=== PATIENT | female | born 1995 | race Caucasian/White ===

== ENCOUNTER 2016-09-17 18:23 | Outpatient (CLI) | payer MEDICAID ==
[2016-09-17] VITALS (9 sets, daily range): BP systolic 132–151; BP diastolic 70–98
[~2016-09-17] VITALS: Ht 162.6 cm; Wt 79.4 kg
[~2016-09-17 18:23] MED LIST: DOCU100C37 PO; HYDR-3812 PO; IBUP-1773 PO; PREN1TAB19 PO
[2016-09-17 19:24] LABS: BASOPHILS % (AUTO) 0 % (0-10); EOSINOPHILS % (AUTO) 1 % (0-10); LYMPHOCYTES # (AUTO) 1.9 X 10^3 (1.0-4.0); LYMPHOCYTES % (AUTO) 26 % (12-44); MEAN CORPUSCULAR HEMOGLOBIN 30 PG (25-34); MEAN CORPUSCULAR HGB CONC 33 G/DL (32-36); MEAN CORPUSCULAR VOLUME 90 FL (80-99); MEAN PLATELET VOLUME 11.8 FL (7.4-10.4); MONOCYTES # (AUTO) 0.7 X 10^3 (0.0-1.0); MONOCYTES % (AUTO) 9 % (0-12); NEUTROPHILS # (AUTO) 4.6 X 10^3 (1.8-7.8); NEUTROPHILS % (AUTO) 64 % (42-75); PLATELET COUNT 126 10^3/uL (130-400); RED CELL DISTRIBUTION WIDTH 13.5 % (10.0-14.5); WHITE BLOOD COUNT 7.2 10^3/uL (4.3-11.0)
[2016-09-17 20:00] LABS: ALANINE AMINOTRANSFERASE 10 U/L (0-55); ALBUMIN 3.4 G/DL (3.2-4.5); ANION GAP 10 MMOL/L (5-14); ASPARTATE AMINO TRANSFERASE 13 U/L (5-34); BILIRUBIN,TOTAL 0.3 MG/DL (0.1-1.0); BLOOD UREA NITROGEN 8 MG/DL (7-18); BUN/CREATININE RATIO 13; CARBON DIOXIDE 19 MMOL/L (21-32); CHLORIDE 107 MMOL/L (98-107); GFR ESTIMATED > 60; GLUCOSE 126 MG/DL (70-105); LACTATE DEHYDROGENASE 157 U/L (125-220); POTASSIUM 3.2 MMOL/L (3.6-5.0); SODIUM 136 MMOL/L (135-145); TOTAL PROTEIN 5.7 G/DL (6.4-8.2); URIC ACID 4.8 MG/DL (2.6-7.2)
--- NOTE | 2016-09-18 07:52 | Physician Query-Final Dx ---
ALEXANDR SAPP 09/18/16 0752: Clinic Account Progress/Dx Physician Query: Please give diagnosis Date of Service Sep 17, 2016 at 18:23 MELL LAGUERRE DO 09/21/16 0800: Clinic Account Progress/Dx DIAGNOSIS: Diagnosis 36 week iup Uterine contractions ALEXANDR SAPP Sep 18, 2016 07:52 MELL LAGUERRE DO Sep 21, 2016 08:00
== END 2016-09-17 20:58 | disposition home or self-care (01) ==
LOC: WSo 18:23 → LDRP 18:23 → WSo 20:58
PROVIDERS: ATTEND Obstetrics & Gynecology
DX: O47.03 False labor before 37 completed weeks of gestation, third trimester (principal); Z3A.36 36 weeks gestation of pregnancy
CPT/HCPCS: 36415; 80053; 82570; 83615; 84156; 84550; 85025; 99214

== ENCOUNTER 2016-10-04 20:00 | Outpatient (CLI) | payer MEDICAID ==
[~2016-10-04] VITALS: Ht 162.6 cm; Wt 82.1 kg
[2016-10-04 20:12] VITALS: BP 130/87
[2016-10-04 21:08] VITALS: BP 121/74
--- NOTE | 2016-10-05 07:41 | Diagnostic Imaging Report ---
INDICATION: Assessment for amniotic fluid. TECHNIQUE: The fetus was observed by the director of player personnel for purposes of a nonstress biophysical profile evaluation. FINDINGS: Intrauterine is currently in a cephalic presentation. cardiac activity at 139 beats per minute. Normal amount of amniotic fluid with an index at 17 cm. Biophysical Profile Scoring: breathin Body movement: 2 tone: 2 Amniotic fluid: 2 Total BPP Score: 8/8 IMPRESSION: 1. Normal biophysical profile score. Dictated by: Dictated on workstation # [id number]
--- NOTE | 2016-10-06 08:20 | Physician Query-Final Dx ---
ALEXANDR SAPP 10/06/16 0820: Clinic Account Progress/Dx Physician Query: Please give diagnosis Date of Service October 04, 2016 at 20:00 DELORIS LEBLANC MD 10/06/16 0855: Clinic Account Progress/Dx DIAGNOSIS: Diagnosis Possible rupture of membranes (not ruptured), third trimester ALEXANDR SAPP October 06, 2016 08:20 DELORIS LEBLANC MD October 06, 2016 08:55
== END 2016-10-04 22:00 | disposition home or self-care (01) ==
LOC: WSo 20:00 → LDRP 20:00 → WSo 22:00
PROVIDERS: ATTEND Obstetrics & Gynecology
DX: Z34.93 Encounter for supervision of normal pregnancy, unspecified, third trimester (principal)
CPT/HCPCS: 76819; 99214

== ENCOUNTER 2016-10-11 19:22 | Inpatient (IN) | payer MEDICAID ==
[~2016-10-11] VITALS: Ht 162.6 cm; Wt 81.2 kg
[2016-10-11 19:25] VITALS: BP 132/87
[2016-10-11] MEDS ORDERED: LACTATED RINGERS 1,000 ML IV ONE (19:32)
[2016-10-11] MEDS ORDERED: LACTATED RINGERS 1,000 ML IV SCH (20:10)
[2016-10-11 20:19] LABS: BASOPHILS % (AUTO) 0 % (0-10); EOSINOPHILS % (AUTO) 1 % (0-10); LYMPHOCYTES # (AUTO) 2.3 X 10^3 (1.0-4.0); LYMPHOCYTES % (AUTO) 30 % (12-44); MEAN CORPUSCULAR HEMOGLOBIN 29 PG (25-34); MEAN CORPUSCULAR HGB CONC 33 G/DL (32-36); MEAN CORPUSCULAR VOLUME 88 FL (80-99); MEAN PLATELET VOLUME 12.2 FL (7.4-10.4); MONOCYTES % (AUTO) 13 % (0-12); NEUTROPHILS # (AUTO) 4.3 X 10^3 (1.8-7.8); NEUTROPHILS % (AUTO) 57 % (42-75); PLATELET COUNT 161 10^3/uL (130-400); RED BLOOD COUNT 4.31 10^6/uL (4.35-5.85); RED CELL DISTRIBUTION WIDTH 14.1 % (10.0-14.5); WHITE BLOOD COUNT 7.6 10^3/uL (4.3-11.0)
[2016-10-11] MEDS ORDERED: MISOPROSTOL 100 MCG (CYTOTEC) TAB ONE (20:38)
[2016-10-11] MEDS: MISOPROSTOL 100 MCG (CYTOTEC) TAB PO SCH (20:45)
[2016-10-11] MEDS: D5 LR IV SOLUTION 1,000 ML IV SCH (20:46)
[2016-10-11 20:48] VITALS: BP 121/74
[2016-10-11 21:20] VITALS: BP 114/66
[2016-10-11 21:49] VITALS: BP 127/75
[2016-10-11] MEDS ORDERED: CATHETER FLUSH 10 ML SYR IV SCH (22:00)
[2016-10-11 22:19] VITALS: BP 112/63
[2016-10-11 22:40] VITALS: BP 122/58
[2016-10-12] VITALS (49 sets, daily range): BP systolic 100–162; BP diastolic 54–118
[2016-10-12] MEDS: MISOPROSTOL 100 MCG (CYTOTEC) TAB PO SCH (01:55)
[2016-10-12] MEDS ORDERED: HYDROmorphone (DILAUDID) 2 MG/ML VIAL IVP ONE (03:30)
[2016-10-12] MEDS: D5 LR IV SOLUTION 1,000 ML IV SCH ×2 (04:39→12:38)
--- NOTE | 2016-10-12 07:19 | History & Physical-OB ---
OB - Chief Complaint & HPI Date Date of Admission: Date of Admission: October 11, 2016 at 7:22 pm Chief Complaint/History OB-Reason for Admission/Chief: Induction of Labor Hx : 2 Hx Para: 1 Expected Date of Delivery: October 14, 2016 Gestational Age in Weeks: 39 Gestational Age in Days: 5 Indication for induction: other (elective >39 weeks) Admission Nurse Assessment Rev: Yes History of Labs O pos Antibody neg RI RPR NR HBsAg NR HIV NR GC neg GBS neg Allergies and Home Medications Allergies Coded Allergies: codeine (Verified Allergy, Mild, 02/05/15) Home Medications Vit/Iron Fumarate/FA 1 Each Tablet, 1 EACH PO DAILY, (Reported) OB - History Hx of Present Care: Yes Ultrasounds: Normal mid trimester US Obstetrical Complications: None Medical Complications: None Delivery History Hx Blood Disorders: No Adverse Rxn to Tranfusion: No Patient Past Medical History none Social History/Family History Recent Infectious Disease Expo: No Alcohol Use: Denies Use Recreational Drug Use: No OB - Admission Exam Physical Exam Vitals: Vital Signs 10/12/16 04:36 Temp 99.1 Pulse 74 Resp 18 B/P (MAP) 111/72 HEENT: NCAT Heart: Rhythm Normal Lungs: Clear Abdomen: Gravid Extremities: Normal Reflexes: Normal Cervical Dilatation: 2cm Effacement: 75% Station: -1 Membranes: Intact Heart Rate: 130's Accelerations: Accelerations Present Decelerations: No Decelerations Short Term Variability: Present Senior Care Variability: Average (6-25) Contractions on Admission: 6-10 Minutes Apart Intensity: Mild Carmichael Scoring Tool (Modified) Dilation (cm): 1-2cm (1) Effacement (%): 51-79% (2) Descent/Station: -1,0 (2) Cervix Consistency: Soft (2) Cervix Position: Anterior (2) Add 1 point for: Each previous vaginal delivery (1) Carmichael Score: 10 Labs Laboratory Tests Test 10/11/16 19:40 Range/Units White Blood Count 7.6 4.3-11.0 10^3/uL Red Blood Count 4.31 L 4.35-5.85 10^6/uL Hemoglobin 12.6 11.5-16.0 G/DL Hematocrit 38 35-52 % Mean Corpuscular Volume 88 80-99 FL Mean Corpuscular Hemoglobin 29 25-34 PG Mean Corpuscular Hemoglobin Concent 33 32-36 G/DL Red Cell Distribution Width 14.1 10.0-14.5 % Platelet Count 161 130-400 10^3/uL Mean Platelet Volume 12.2 H 7.4-10.4 FL Neutrophils (%) (Auto) 57 42-75 % Lymphocytes (%) (Auto) 30 12-44 % Monocytes (%) (Auto) 13 H 0-12 % Eosinophils (%) (Auto) 1 0-10 % Basophils (%) (Auto) 0 0-10 % Neutrophils # (Auto) 4.3 1.8-7.8 X 10^3 Lymphocytes # (Auto) 2.3 1.0-4.0 X 10^3 Monocytes # (Auto) 1.0 0.0-1.0 X 10^3 Eosinophils # (Auto) 0.0 0.0-0.3 10^3/uL Basophils # (Auto) 0.0 0.0-0.1 10^3/uL OB - Assessment/Plan/Diagnosis Assessment Assessment: induction of labor Plan Induction Method: per Misoprostol Protocol Discharge Diagnosis Diagnosis: 20 yo @ 39.5 weeks Elective >39 week induction GBS neg MELL LAGUERRE DO October 12, 2016 7:19 am
[2016-10-12] MEDS ORDERED: SUFENTA 0.6MCG/ML BUPIVA 0.125 100 ML ONE (11:21)
[2016-10-12] MEDS ORDERED: fentaNYL INJECTION 100 MCG/2 ML AMP ONE (11:29)
[2016-10-12] MEDS ORDERED: BUPIVACAINE 0.25% 30 ML (SENSORCAINE) VIAL ONE (11:29)
[2016-10-12] MEDS ORDERED: LIDOCAINE PF 2% 10 ML (XYLOCAINE) AMP ONE (11:29)
[2016-10-12] MEDS ORDERED: LACTATED RINGERS 1,000 ML IV ONE (12:03)
[2016-10-12] MEDS ORDERED: fentaNYL INJECTION 100 MCG/2 ML AMP INJ ONE (12:15)
[2016-10-12] MEDS ORDERED: OXYTOCIN/NORMAL SALINE 500 ML IV SCH ×2 (12:15→18:01)
[2016-10-12] MEDS ORDERED: CATHETER FLUSH 10 ML SYR IV PRN (12:15)
[2016-10-12] MEDS ORDERED: diphenhydrAMINE 50 MG/ML INJ (BENADRYL) IV PRN (12:15)
[2016-10-12] MEDS ORDERED: EPIDURAL (SUFENTA 0.6MCG/ML BUPIVA 0.125%) 100 ML BAG EPI SCH (12:15)
[2016-10-12] MEDS ORDERED: NALOXONE 0.4 MG/ML 1 ML (NARCAN) VIAL IV PRN (12:15)
[2016-10-12] MEDS ORDERED: ONDANSETRON 4 MG/2 ML (SDV) Z0FRAN IV PRN (12:15)
[2016-10-12] MEDS ORDERED: NS IV 1000 ML 1,000 ML ONE (13:17)
[2016-10-12] MEDS ORDERED: 1/2 NS IV SOLUTION 1,000 ML IV SCH (13:45)
[2016-10-12] MEDS ORDERED: HYDROmorphone (DILAUDID) 2 MG/ML VIAL IVP PRN (14:00)
[2016-10-12] MEDS ORDERED: LIDOCAINE/EPI 1%-1:200,000 (XYLOCAINE) 30 ML VIAL ONE (16:00)
[2016-10-12] MEDS ORDERED: HYDROmorphone (DILAUDID) 2 MG/ML VIAL ONE (16:29)
--- NOTE | 2016-10-12 18:05 | OB Labor & Delivery Record ---
L&D History Date of Service Date of Service: October 12, 2016 History Expected Date of Delivery: October 14, 2016 Gestational Age in Weeks: 39 Hx : 2 Hx Para: 1 Complications Events: Routine care Operative Indications (Cesarea: N/A-Vaginal Delivery Intrapartal Events: None L&D Stage1 Stage One Onset of Labor - Date: October 12, 2016 Monitors and Tracing Monitor Mode: External Heart Rate: 130 Station: +1 Correction Variability: Average (6-10) (AUDIBLE ARRHYTMIA) Short Term Variability: Present Presentation: Vertex Vital Signs VS - Last 72 Hours, by Label 10/11/16 10/11/16 10/11/16 10/11/16 19:25 20:48 21:20 21:49 Temp 99.9 99.9 Pulse 93 76 78 88 Resp 18 18 18 18 B/P (MAP) 132/87 121/74 114/66 127/75 10/11/16 10/11/16 10/12/16 10/12/16 22:19 22:40 01:55 03:36 Temp 99.5 99.1 Pulse 77 72 80 90 Resp 18 18 18 18 B/P (MAP) 112/63 122/58 109/68 123/82 10/12/16 10/12/16 10/12/16 10/12/16 04:36 05:28 06:29 07:15 Temp 99.1 99.3 Pulse 74 73 81 Resp 18 18 18 B/P (MAP) 111/72 113/70 109/71 10/12/16 10/12/16 10/12/16 10/12/16 07:30 08:31 09:30 10:32 Temp 99.0 Pulse 79 74 89 70 Resp 18 18 18 18 B/P (MAP) 110/67 118/77 119/83 127/77 10/12/16 10/12/16/10/12/16 11:30 11:37 11:42 11:46 Pulse 77 100 81 78 Resp 18 18 18 18 B/P (MAP) 120/79 137/67 134/73 131/75 Pulse Ox 100 100 100 10/12/16 10/12/16 10/12/16 10/12/16 11:49 11:52 11:55 11:57 Pulse 83 77 75 75 Resp 18 18 18 18 B/P (MAP) 121/81 120/80 115/89 112/72 Pulse Ox 100 99 99 99 10/12/16 10/12/16 10/12/16 10/12/16 12:01 12:03 12:06 12:10 Pulse 67 68 68 70 Resp 18 18 18 18 B/P (MAP) 110/69 104/62 105/61 104/58 Pulse Ox 100 100 10/12/16 10/12/16 10/12/16 10/12/16 12:13 12:19 12:29 12:33 Pulse 72 65 72 68 Resp 18 18 18 18 B/P (MAP) 102/60 102/55 107/67 115/62 Pulse Ox 98 100 94 10/12/16 10/12/16 10/12/16 10/12/16 12:39 12:55 13:10 13:25 Temp 98.6 Pulse 70 62 62 75 Resp 18 18 18 18 B/P (MAP) 108/59 100/58 107/54 117/71 10/12/16 10/12/16 10/12/16 10/12/16 13:40 13:55 14:10 14:24 Pulse 106 75 82 76 Resp 18 18 18 18 B/P (MAP) 124/81 121/65 112/58 112/75 10/12/16 10/12/16 10/12/16 10/12/16 14:41 14:55 15:10 15:24 Temp 100.8 Pulse 71 82 72 80 Resp 18 18 18 18 B/P (MAP) 103/61 114/57 108/66 110/69 10/12/16 10/12/16 15:40 15:55 Temp 99.9 Pulse 76 96 Resp 20 24 B/P (MAP) 105/57 114/64 Rupture of Membranes Spontaneous Ruture of Membrane: No Amniotic Membrane Rupture Time: 0807 Amniotic Membrane Fluid Desc.: Clear Vaginal Bleeding Description: Normal Show Induction/Anesthesia Epidural Cath Placement - Time: 1144 Progress/Notes Pitocin started to augment inadequate labor pattern L&D Stage2 Stage Two Stage II Date: October 12, 2016 Monitors and Tracing Monitor Mode: External Heart Rate: 130 Monitor Decelerations: Early Correction Variability: Moderate (11-25) Short Term Variability: Present Position: Right Occiput Anterior Presentation: Vertex Cord Descript/Complications Cord Vessel Description: 3 Vessels Delivery Type Infant Delivery Method: Spontaneous Vaginal Anterior Shoulder: Right Episiotomy/Perineal Laceration Laceraction(s)/Extensions: Yes Degree (describe repair) Right labial laceration repaired using 3-0 rapide vicryl suture Condition of Delivery 1 minute Comment: 8 5 minute Comment: 9 Notes Live male weight pending Condition of Infant Condition of Infant: Living Exam: No Observed Abnormalities Resuscitation Resuscitation: N/A - Spontaneous Resp L&D Stage3 Stage Three Stage III Date: October 12, 2016 Pictocin Pitocin Administration mu/min: 8 Pitocin ml/hr: 8 Pitocin Administration Comment: 30 mu wide open at delivery of placenta Placenta Delivery Placenta Delivery: Spontaneous Delivery Summary Summary blood loss >1000ml: No Vaginal blood loss >500ml: No 350 Attending at delivery: Mell Laguerre DO Condition of Delivery Examined: Cervix Examined, Uterus Explored Post Hemorrhage: No Condition of Mother stable Condition of (s) stable MELL LAGUERRE DO October 12, 2016 18:05
[2016-10-12] MEDS ORDERED: BENZOCAINE/MENTHOL (DERMOPLAST) 56 ML CAN TP PRN (18:15)
[2016-10-12] MEDS ORDERED: TETANUS,DIPTH,PERTUSS P/F (BOOSTRIX) 0.5 ML VIAL IM ONE (18:15)
[2016-10-12] MEDS ORDERED: MEASLES,MUMPS,RUBELLA 1 EA INJ SQ ONE (18:15)
[2016-10-12] MEDS ORDERED: DIBUCAINE (NUPERCAINAL) 1% OINT 30 GM TOP PRN (18:15)
[2016-10-12] MEDS ORDERED: HYDROcodone/APAP 5 MG/325 MG (LORTAB) TAB PO PRN (18:15)
[2016-10-12] MEDS ORDERED: WITCH HAZEL(TUCKS) 40 EA JAR TOP PRN (18:15)
[2016-10-12] MEDS: IBUPROFEN 600 MG (MOTRIN) TAB PO SCH (18:20)
[2016-10-12] MEDS: DOCUSATE SODIUM 100 MG (COLACE) CAP PO SCH (21:30)
[2016-10-12] MEDS ORDERED: CATHETER FLUSH 10 ML SYR IV SCH (22:00)
[2016-10-13] MEDS: IBUPROFEN 600 MG (MOTRIN) TAB PO SCH ×4 (00:10→17:57)
[2016-10-13 01:14] VITALS: BP 99/58
[2016-10-13 05:45] LABS: BASOPHILS % (AUTO) 0 % (0-10); EOSINOPHILS % (AUTO) 0 % (0-10); LYMPHOCYTES # (AUTO) 2.1 X 10^3 (1.0-4.0); LYMPHOCYTES % (AUTO) 21 % (12-44); MEAN CORPUSCULAR HEMOGLOBIN 29 PG (25-34); MEAN CORPUSCULAR HGB CONC 33 G/DL (32-36); MEAN CORPUSCULAR VOLUME 90 FL (80-99); MEAN PLATELET VOLUME 11.6 FL (7.4-10.4); MONOCYTES # (AUTO) 1.3 X 10^3 (0.0-1.0); MONOCYTES % (AUTO) 13 % (0-12); NEUTROPHILS # (AUTO) 6.8 X 10^3 (1.8-7.8); NEUTROPHILS % (AUTO) 66 % (42-75); PLATELET COUNT 113 10^3/uL (130-400); RED BLOOD COUNT 3.72 10^6/uL (4.35-5.85); RED CELL DISTRIBUTION WIDTH 14.1 % (10.0-14.5); WHITE BLOOD COUNT 10.2 10^3/uL (4.3-11.0)
[2016-10-13 06:00] VITALS: BP 106/74
[2016-10-13] MEDS ORDERED: PRENATAL VITAMIN 1 EA TAB PO SCH (07:00)
[2016-10-13] MEDS ORDERED: FERROUS SULF 325 MG (IRON) TAB PO SCH (08:00)
[2016-10-13] MEDS ORDERED: HYDR-3812 PO (08:18)
[2016-10-13] MEDS ORDERED: IBUP-1773 PO (08:18)
[2016-10-13] MEDS ORDERED: FERR-74 PO (08:18)
[2016-10-13] MEDS ORDERED: DOCU100C37 PO (08:18)
--- NOTE | 2016-10-13 08:18 | Discharge Inst-Women's Service ---
Discharge Inst-Women's Serv Depart Medication/Instructions New, Converted or Re-Newed RX: RX on Chart Consults/Follow Up Additional Follow Up: Yes Activity Activity: Activity as Tolerated Driving Instructions: No Driving for 1 Week NO SMOKING: NO SMOKING Nothing Inside Vagina: No Douching, No [place], No Tampons Diet Discharge Diet: No Restrictions Symptoms to Report to : Bleeding Excessive, Pain Increased, Fever Over 101 Degrees F, Vaginal Bleeding Increase, Questions/Concerns For Any Problems or Questions: Contact Your Physician Skin/Wound Care Infection Signs and Symptoms: Increased Redness, Foul Odor of Wound, Increased Drainage, Skin Itchy or Has a Rash, Increased Swelling, Temperature Above 101 F Bathing Instructions: MELL Iqbal DO October 13, 2016 8:18 am
--- NOTE | 2016-10-13 09:14 | Progress Note-Standard ---
Standard Progress Note Progress Notes/Assess & Plan Progress/Assessment & Plan Patient doing well, no concerns voiced. Ambulating and voiding freely. Lochia light. Pain well controlled, would like to go home later today if possible. Vital Sign - Last 24 Hours 10/12/16 10/12/16 10/12/16 10/12/16 09:30 10:32 11:30 11:37 Temp 99.0 Pulse 89 70 77 100 Resp 18 18 18 18 B/P (MAP) 119/83 127/77 120/79 137/67 Pulse Ox 100 10/12/16 10/12/16 10/12/16 10/12/16 11:42 11:46 11:49 11:52 Pulse 81 78 83 77 Resp 18 18 18 18 B/P (MAP) 134/73 131/75 121/81 120/80 Pulse Ox 100 100 100 99 10/12/16 10/12/16 10/12/16 10/12/16 11:55 11:57 12:01 12:03 Pulse 75 75 67 68 Resp 18 18 18 18 B/P (MAP) 115/89 112/72 110/69 104/62 Pulse Ox 99 99 100 100 10/12/16 10/12/16 10/12/16 10/12/16 12:06 12:10 12:13 12:19 Pulse 68 70 72 65 Resp 18 18 18 18 B/P (MAP) 105/61 104/58 102/60 102/55 Pulse Ox 98 100 10/12/16 10/12/16 10/12/16 10/12/16 12:29 12:33 12:39 12:55 Temp 98.6 Pulse 72 68 70 62 Resp 18 18 18 18 B/P (MAP) 107/67 115/62 108/59 100/58 Pulse Ox 94 10/12/16 10/12/16/10/12/16 13:10 13:25 13:40 13:55 Pulse 62 75 106 75 Resp 18 18 18 18 B/P (MAP) 107/54 117/71 124/81 121/65 10/12/10/12/16 10/12/16 10/12/16 14:10 14:24 14:41 14:55 Pulse 82 76 71 82 Resp 18 18 18 18 B/P (MAP) 112/58 112/75 103/61 114/57 10/12/16 10/12/16 10/12/16 10/12/16 15:10 15:24 15:40 15:55 Temp 100.8 99.9 Pulse 72 80 76 96 Resp 18 18 20 24 B/P (MAP) 108/66 110/69 105/57 114/64 10/12/16 10/12/16 10/12/16 10/12/16 16:23 16:28 16:38 16:53 Pulse 99 115 108 101 Resp 20 20 20 18 B/P (MAP) 162/118 109/54 121/58 125/56 10/12/16 10/12/16 10/12/16 10/12/16 17:08 17:24 17:38 17:53 Temp 100.4 Pulse 76 83 104 90 Resp 18 18 18 18 B/P (MAP) 102/55 121/73 124/69 116/63 10/12/16 10/12/16 10/13/16 10/13/16 18:19 21:20 01:14 06:00 Temp 98.2 97.2 97.4 Pulse 94 74 73 73 Resp 18 18 18 18 B/P (MAP) 112/67 114/69 99/58 106/74 Pulse Ox 97 98 99 Intake and Output 10/12/16 10/12/16 10/13/16 15:00 23:00 07:00 Intake Total 3200 ml 1000 ml 700 ml Balance 3200 ml 1000 ml 700 ml Laboratory Tests Test 10/13/16 05:35 Range/Units White Blood Count 10.2 4.3-11.0 10^3/uL Red Blood Count 3.72 L 4.35-5.85 10^6/uL Hemoglobin 10.9 L 11.5-16.0 G/DL Hematocrit 33 L 35-52 % Mean Corpuscular Volume 90 80-99 FL Mean Corpuscular Hemoglobin 29 25-34 PG Mean Corpuscular Hemoglobin Concent 33 32-36 G/DL Red Cell Distribution Width 14.1 10.0-14.5 % Platelet Count 113 L 130-400 10^3/uL Mean Platelet Volume 11.6 H 7.4-10.4 FL Neutrophils (%) (Auto) 66 42-75 % Lymphocytes (%) (Auto) 21 12-44 % Monocytes (%) (Auto) 13 H 0-12 % Eosinophils (%) (Auto) 0 0-10 % Basophils (%) (Auto) 0 0-10 % Neutrophils # (Auto) 6.8 1.8-7.8 X 10^3 Lymphocytes # (Auto) 2.1 1.0-4.0 X 10^3 Monocytes # (Auto) 1.3 H 0.0-1.0 X 10^3 Eosinophils # (Auto) 0.0 0.0-0.3 10^3/uL Basophils # (Auto) 0.0 0.0-0.1 10^3/uL Uterine fundus firm and palpated below umbilicus Diagnosis: PPD 1 NVD P: Continue routine pp care Anticipate dc later today MELL LAGUERRE DO October 13, 2016 9:14 am
[2016-10-13 09:30] VITALS: BP 110/71
[2016-10-13] MEDS ORDERED: TETANUS,DIPTH,PERTUSS P/F (BOOSTRIX) 0.5 ML VIAL IM ONE (09:58)
[2016-10-13] MEDS: DOCUSATE SODIUM 100 MG (COLACE) CAP PO SCH (10:10)
--- NOTE | 2016-10-13 11:37 | Anesthesia-Regional Post-Op ---
Regional Patient Condition Mental Status: Alert, Oriented x3 Circulation: Same as Pre-Op Headache: Absent Sensation: Full Recovery Motor Block: Absent Post Op Complications Complications None Follow Up Care/Instructions Patient Instructions None needed. Anesthesia/Patient Condition Patient is doing well, no complaints, stable vital signs, no apparent adverse anesthesia problems. No complications reported per nursing. HUSEYIN LAMB CRNA October 13, 2016 11:37
[2016-10-13 13:40] VITALS: BP 108/70
[2016-10-13 17:58] VITALS: BP 114/71
[2016-10-13 18:15] VITALS: BP 114/71
== END 2016-10-13 18:15 | disposition home or self-care (01) | DRG 775 ==
LOC: LDRP 19:22
PROVIDERS: ADMIT Obstetrics & Gynecology; ATTEND Obstetrics & Gynecology
PROC: 10E0XZZ Delivery of Products of Conception, External Approach (ICD-10-PCS; principal; 2016-10-12)
PROC: 0HQ9XZZ Repair Perineum Skin, External Approach (ICD-10-PCS; 2016-10-12)
DX: O70.0 First degree perineal laceration during delivery (principal); Z3A.39 39 weeks gestation of pregnancy; Z37.0 Single live birth; Z23 Encounter for immunization
CPT/HCPCS: 36415; 85025; 86850; 86900; 86901; 90715